=== PATIENT | male | born 1985 | race Caucasian/White ===

== ENCOUNTER 2024-09-28 17:37 | Emergency (ER) | payer MEDICARE, SELFPAY ==
[2024-09-28 17:47] VITALS: BP 141/99; PULSE 98; RESP 20; TEMP 36.8; O2SAT 96; BMI 30.5
--- NOTE | 2024-09-28 17:48 | XR_ITS ---
PROCEDURE INFORMATION: Exam: XR Left Elbow Exam date and time: 09/28/2024 5:54 PM Age: 39 years old Clinical indication: Injury or trauma; Other: Board v elbow; Blunt trauma (contusions or hematomas); Left; Additional info: L elbow pain TECHNIQUE: Imaging protocol: Radiologic exam of the left elbow. Views: 3 or more views. COMPARISON: No relevant prior studies available. FINDINGS: Bones/joints: No evidence of acute osseous abnormality. Soft tissues: Linear thin radiopaque foreign body measuring 7.5 mm at the anterolateral aspect of the antecubital fossa soft tissues. IMPRESSION: 1. Linear thin radiopaque foreign body measuring 7.5 mm at the anterolateral aspect of the antecubital fossa soft tissues. 2. No evidence of acute osseous abnormality.
--- NOTE | 2024-09-28 17:48 | HMH.EDGENADL ---
Discharge Plan Disposition Patient Disposition: Home, Self-Care Referrals Follow up/Referrals: Calvin Payton DO [Staff Physician] - See instructions Provider,Referral, MD [Primary Care Provider] - See instructions Activity Restrictions/Add. Instructions Additional Instructions/Restrictions: Take Tylenol and ibuprofen as needed for pain. Follow-up with our orthopedic surgeons office, Dr. Payton, information provided above, for further evaluation if your symptoms persist. Please return the emerged apartment with any new, concerning, worsening symptoms. Clinical Impressions Clinical Impression: Elbow pain, left Print Language Print Language: Frisian Discharge ED Provider: Ted Avalos General Adult HPI General Chief complaint: Extremity Injury, Upper Stated complaint: left elbow pain,injury 4 months ago Time Seen by Provider: 09/28/24 17:39 Mode of Arrival: Ambulatory Source of Information: Patient Limitations: No Limitations History of Present Illness HPI narrative: This is a 39-year-old male with a past medical history of IV drug use and infective endocarditis 8 to 9 years ago who presents with left elbow pain for the last 4 months. States that he was working in a barn and injured his left elbow 4 months ago. Denies any other recent injuries. States that he has a numb sensation around his elbow at the site of injury, however nothing distally. Has had limited range of motion of his left elbow since that time. Denies any recent IV drug use. No other injuries or complaints Related Data Allergies Allergy/AdvReac Type Severity Reaction Status Date / Time promethazine (From PHENERGAN) Allergy Unknown Unverified 05/20/17 14:44 [facility] Disclaimer: The information contained in this section may have been updated after the patient was seen, as this information can be updated by other users. Social History Smoking Status: Current every day smoker alcohol intake: former current occupational status: employed Travel in the last 8 weeks?: None ROS Obtained: Yes All systems reviewed & no additional complaints except as documented Physical Exam General General appearance: alert and in no apparent distress Head Head exam: atraumatic Eye Eye exam: Present normal appearance, PERRL and EOMI Neck Neck exam: Present normal inspection and full ROM Chest Chest inspection: Present symmetric chest wall rise Respiratory Respiratory exam: Present normal lung sounds bilaterally; Absent respiratory distress Cardiovascular Cardiovascular exam: Present regular rate and normal rhythm Abdominal Exam Abdominal exam: Present soft; Absent distention Extremities Exam Extremities exam: Present other (RUE: Tenderness of the left lateral elbow. No deformity. Range of motion intact. No swelling. Neurovascularly intact in median/ulnar/radial nerve distributions) Neurological Exam Neurological exam: Present alert and oriented X3 Psychiatric Psychiatric exam: Present normal affect and normal mood Skin Skin exam: Present warm and dry Medical Decision Making Medical Records Medical records reviewed: Yes I reviewed the patient's medical records. Screening: Per USPSTF and CDC recommendations, given the prevalence of disease in our region, it is our hospital?s policy to screen for HIV and viral Hepatitis for all patients aged 18 and over and those with ongoing risk factors. Zach Inquiry Pt receiving controlled substance: No Vital Signs: 09/28/24 17:47 Temperature 98.2 F Temperature Source Oral Pulse Rate [Left Radial] 98 H Respiratory Rate 20 Blood Pressure [Right Arm] 141/99 H Blood Pressure Mean [Right Arm] 113 02 Sat by Pulse Oximetry 96 Oxygen Delivery Method Room Air Orders (Tests/Meds): ORDERS Category Date Time Status Elbow XR left mininum 3 views [XR elbow LT min 3V] Stat Exams 09/28/24 17:48 Taken Medical Decision Narrative: In summary, this 39-year-old male with a past medical history of IV drug use and infective endocarditis 8 to 9 years ago presents to the emergency department today with traumatic left elbow pain for the last 4 months. On initial evaluation patient is afebrile, he medically stable, nontoxic-appearing. Differential diagnosis includes but is not limited to fracture, dislocation, soft tissue injury, neuropathic pain, arthritis, septic arthritis. Low clinical suspicion for inflammatory or septic arthritis given intact range of motion to the left elbow and no obvious swelling. Has had persistent symptoms since trauma 4 months ago.. Based on these concerns, I ordered x-ray of the left elbow. XR personally interpreted demonstrates no acute osseous pathology. Patient appropriate for discharge with outpatient follow-up. Provided with orthopedic surgery follow-up for further evaluation if symptoms persist. Ultimately discharged in stable condition. Critical Care Critical Care Time Critical Care Time: No
[2024-09-28 18:07] VITALS: BP 148/79; PULSE 80; RESP 20; TEMP 36.8; O2SAT 96
== END 2024-09-28 18:09 | disposition home or self-care (01) ==
PROVIDERS: Emergency Provider Student in an Organized Health Care Education/Training Program
DX: M25.522 Pain in left elbow (principal)
CPT/HCPCS: 73080; 99283

== ENCOUNTER 2025-01-20 17:30 | Emergency (ER) | payer MEDICARE, SELFPAY ==
--- NOTE | 2025-01-20 17:34 | HMH.EDGENADL ---
Discharge Plan Disposition Patient Disposition: Home, Self-Care Condition: Good Prescriptions Prescriptions: New levofloxacin 750 mg tablet 750 mg PO DAILY 4 Days Qty: 4 0RF No Action atorvastatin [Lipitor] 40 mg tablet 40 mg PO DAILY Referrals Follow up/Referrals: Provider,Referral, [Primary Care Provider, Medical] - See instructions Activity Restrictions/Add. Instructions Additional Instructions/Restrictions: Take the antibiotics as prescribed for 4 additional days. Clean your wound with soap and water twice daily. Return for any signs of infection including spreading redness, drainage, severe pain. You can take Tylenol Motrin as needed. Clinical Impressions Clinical Impression: Laceration Instructions Patient Instructions: DI for Skin Abscess Print Language Print Language: Malawian Discharge ED Provider: Nicci Bentley General Adult HPI General Chief complaint: Skin/Abscess/Foreign Body Stated complaint: AO 01/20/25 1100 Stepped on nail Time Seen by Provider: 01/20/25 17:34 History of Present Illness HPI narrative: Patient is an otherwise healthy 39-year-old male with history of coronary artery disease but no history of diabetes who presents to the emergency department with right foot pain. Patient states that he was at work when he stepped on a nail that went through his shoe. Patient states that he stepped on a piece of wood that had a nail and it and then brought his foot back up, the nail did not stay in his shoe or in his foot. Patient states that he was walking on his foot all day but had persistent pain which is what brought him here to the emergency department. Patient states he is unsure when his last tetanus shot was. Related Data Home Medications ?Medication ?Instructions ?Recorded ?Confirmed atorvastatin 40 mg tablet (Lipitor) 40 mg PO DAILY 12/06/24 12/06/24 Previous Rx's ?Medication ?Instructions ?Recorded levofloxacin 750 mg tablet 750 mg PO DAILY 4 days #4 tabs 01/20/25 Allergies Allergy/AdvReac Type Severity Reaction Status Date / Time promethazine (From PHENERGAN) Allergy Unknown Verified 12/06/24 09:00 [facility] Disclaimer: The information contained in this section may have been updated after the patient was seen, as this information can be updated by other users. Social History (Updated 12/06/24 @ 09:02 by Dolly Baron [facility]) Smoking Status: Current every day smoker alcohol intake: former substance use type: former substance user current occupational status: employed Travel in the last 8 weeks?: None Have you lived/traveled outside US in past 30 days?: No Contact w/someone who lives/traveled outside US past 30 days?: No Exposure to someone with infectious disease in past 14 days?: No Do you have a fever (greater than 100.4 F or 38 C)?: No Have you tested positive for COVID-19?: No Exposed to someone with COVID-19 in past 14 days?: No Do you have a sore throat?: No Do you have a cough?: No Do you have any weakness?: No Do you have any diarrhea?: No Are you experiencing any unusual bleeding?: No Do you have any muscle aches/pain?: No Do you have any abdominal pain?: No Are you experiencing loss of taste or smell?: No ROS Obtained: Yes All systems reviewed & no additional complaints except as documented and Yes Systems reviewed as appropriate & no additional complaints except as documented Physical Exam General General appearance: alert and in no apparent distress Head Head exam: atraumatic, normocephalic and normal inspection Eye Eye exam: Present normal appearance, PERRL and EOMI; Absent scleral icterus ENT ENT exam: Present normal exam and normal external ear exam Neck Neck exam: Present normal inspection and full ROM Chest Chest inspection: Present normal inspection and symmetric chest wall rise Respiratory Respiratory exam: Present normal lung sounds bilaterally; Absent respiratory distress or wheezes Cardiovascular Cardiovascular exam: Present regular rate, normal rhythm and normal heart sounds Abdominal Exam Abdominal exam: Present soft and distention; Absent tenderness, guarding or rebound Extremities Exam Extremities exam: Present normal inspection, full ROM and other (Right foot with some tenderness of the right first digit, small puncture wound, no erythema) Back Exam Back exam: Present normal inspection and full ROM Neurological Exam Neurological exam: Present alert and oriented X3 Psychiatric Psychiatric exam: Present normal affect and normal mood Skin Skin exam: Present warm and dry Medical Decision Making Medical Records Medical records reviewed: Yes I reviewed the patient's medical records. Screening: Per USPSTF and CDC recommendations, given the prevalence of disease in our region, it is our hospital?s policy to screen for HIV and viral Hepatitis for all patients aged 18 and over and those with ongoing risk factors. Zach Inquiry Pt receiving controlled substance: No Vital Signs: 01/20/25 17:35 01/20/25 17:37 01/20/25 19:10 Temperature 98.6 F Temperature Source Oral Pulse Rate 89 57 L Pulse Rate [Right Brachial] 91 H Respiratory Rate 18 16 Blood Pressure 131/87 146/84 H Blood Pressure [Right Arm] 131/57 L Blood Pressure Mean 103 Blood Pressure Mean [Right Arm] 81 02 Sat by Pulse Oximetry 98 99 100 Oxygen Delivery Method Room Air Room Air 01/20/25 19:27 Temperature 98.4 F Temperature Source Pulse Rate 84 Pulse Rate [Right Brachial] Respiratory Rate 16 Blood Pressure 146/84 H Blood Pressure [Right Arm] Blood Pressure Mean Blood Pressure Mean [Right Arm] 02 Sat by Pulse Oximetry Oxygen Delivery Method Room Air Lab Data Lab results reviewed: Yes I reviewed the patient's lab results. Orders (Tests/Meds): ED MEDICATIONS Discontinued Medications Generic Name Dose Route Start Last Admin Trade Name Freq PRN Reason Stop Dose Admin Acetaminophen 1,000 mg 01/20/25 17:48 01/20/25 18:01 Acetaminophen 500mg Tab PO 01/20/25 17:49 1,000 mg ONCE ONE Administration Ibuprofen 800 mg 01/20/25 17:49 01/20/25 18:01 Ibuprofen 800 Mg Tablet PO 01/20/25 17:50 800 mg ONCE ONE Administration Levofloxacin 750 mg 01/20/25 19:08 01/20/25 19:26 Levofloxacin 750 Mg Tablet PO 01/20/25 19:09 750 mg ONCE ONE Administration Tetanus/Reduced Diphtheria/Acell Pertussis 0.5 ml 01/20/25 17:47 01/20/25 17:58 Tet/Diphth/Pert-Adult 0.5ml Syringe IM 01/20/25 17:48 0.5 ml .ONCE ONE Administration ORDERS Category Date Time Status Foot XR right minimum 3 views [XR foot RT min 3V] Stat Exams 01/20/25 17:47 Completed Medical Decision Narrative: Patient is an otherwise healthy 39-year-old male who presented to the emergency department after stepping on a nail earlier today. On arrival, patient was hemodynamically stable with unremarkable vital signs. Differential includes but not limited to: Laceration, fracture, exposure to foreign body, dislocation, cellulitis, amongst others. X-ray of the right foot was obtained which was reviewed and interpreted by myself and showed no acute bony pathology. Given that patient did step on a nail, given that the nail went through patient's shoe, patient was given a dose of Levaquin in the emergency department and sent home with 4 days of additional antibiotic appropriate coverage. Patient is unsure when his last tetanus shot was. Patient was discharged home in stable condition wound care instructions were discussed. Patient's tetanus shot was not given in the emergency department however I did call the patient and told him that he needed to go to a healthcare facility in the next 24 hours to receive a tetanus shot given that he had stepped on a nail. Patient understood. Critical Care Critical Care Time Critical Care Time: No
[2025-01-20 17:35] VITALS: BP 131/87; PULSE 89; O2SAT 98
[2025-01-20 17:37] VITALS: BP 131/57; PULSE 91; RESP 18; TEMP 37; O2SAT 99; BMI 25.0
--- NOTE | 2025-01-20 17:47 | XR_ITS ---
PROCEDURE INFORMATION: Exam: XR Right Foot Exam date and time: 01/20/2025 6:04 PM Age: 39 years old Clinical indication: Injury or trauma; Other: Stepped on nail; Puncture; Foot; Right; With foreign body; Additional info: Stepped on nail, pain first toe TECHNIQUE: Imaging protocol: Radiologic exam of the right foot. Views: 3 or more views. COMPARISON: No relevant prior studies available. FINDINGS: Bones/joints: Normal. Soft tissues: Normal. IMPRESSION: No acute findings.
[2025-01-20] MEDS: TET/DIPHTH/PERT-ADULT 0.5ML SYRINGE 0.5 ML IM (17:58)
[2025-01-20] MEDS: IBUPROFEN 800 MG TABLET PO (18:01)
[2025-01-20] MEDS: ACETAMINOPHEN 500MG TAB 1000 MG PO (18:01)
--- NOTE | 2025-01-20 19:09 | PC.NURSE ---
Resumed care from DUNG Sierra
[2025-01-20 19:10] VITALS: BP 146/84; PULSE 57; RESP 16; O2SAT 100
[2025-01-20 19:27] VITALS: BP 146/84; PULSE 84; RESP 16; TEMP 36.9; O2SAT 100
== END 2025-01-20 19:28 | disposition home or self-care (01) ==
PROVIDERS: Emergency Provider Student in an Organized Health Care Education/Training Program
DX: S91.331A Puncture wound without foreign body, right foot, initial encounter (principal); W45.0XXA Nail entering through skin, initial encounter
CPT/HCPCS: 73630; 90471; 90715; 99283

== ENCOUNTER 2025-03-16 19:50 | Emergency (ER) | payer SELFPAY ==
--- OUTSIDE RECORDS SUMMARY | 2017-10-28 04:43 | XMS_ITS | Continuity of Care Document ---
Author Organization [facility] Address [address] [place] [address] Phone Care Team Providers Care Waste Reduction Coordinator Name Role Phone Harris Liss MORRISON Unavailable Unavailable Allergies, Adverse Reactions, Alerts Substance Reaction Status Criticality PROMETHAZINE HCL restless Active No Informat ion Medications Medication Instructions Dosage Effective Dates (start - stop) Status Comments No Drug Therapy Prescribed Procedures Procedure Date Office/outpatient visit,[facility] 2017 BODY MASS INDEX DOCD Advance Directives Directive Yes / No Effective Date File Name No Information Encounters Encounter Description Practice Location Reason(s) For Visit Diagnoses Date Provider Providers Copied on Encounter [facility], [address] [place], [id number] tel:[phone] Formerly [facility] No Information 8 Harris Leija. [address] [facility] [address] [place], [address]. tel:[phone] [facility] [address] [place], [place], [id number] tel:[phone] Formerly [facility] Nursing Comments (chief complaint) Establish Care (chief complaint) Body mass index (BMI) 24.0-24.9, adultEncounter to establish careHistory of endocarditis in adulthoodHistory of intravenous drug use in remissionHeart murmur on physical examinationEdema extremities [address] [place], [address]. tel:[phone] Family History Family Member Type Diagnosis Age At Onset Father Problem (finding) prostate cancer Father Problem (finding) hypertension Mother Problem (finding) hypertension Payers Payer name Insurance type Covered libertarian ID Authoriza ticlarita(s) No Information Social History Type Description Quantity Date Captured Comments Sex Male Smoking Status No Information Plan Of Treatment Date Type Action Status Goal Tobacco cessation counseling completed Goal Dietary management education , guidance, and counseling completed Referral Ordered: Referrals: Cardiology. Evaluate and treat Appointment date/timeframe: 11/17/2017 ordered Referral Ordered: 2D Echo Doppler, transthoracic, Complete, heart, W/Color Flow Appointment date/timeframe: 10/29/2017 ordered History Of Present Illness Encounter Date Complaint History Of Prese nt Illness Nursing [facility] A[facility] Establish Care He states the sy mptoms are chronic and are poorly controlled. In office today to establish care. Last PCP: none Past medical problems: endocarditis-multiple valve involvement. States he was needing valve replacement. Surgical: noneSmoke: yes, 1ppd Alcohol: beer, 7 weekly Drugs: DeniesMedication: none at this timeReason for establishing care now: establish care.Has history of IV drug use including ice, heroin, pcp and cocaine. States he has been clean for 2 years. Functional Status Date Functional Assessmen t No Information Medications Administered Medication Instructions Dosage Effective Dates (start - stop) Status Comments No Drug Therapy Prescribed Instructions Date Instruction Additional Infor mation Giving encouragement to exercise Related to Body mass index (BMI) 24.0-24.9, adult Dietary management e ducation, guidance, and counseling Related to Body mass index (BMI) 24.0-24.9, adult Assessments Type Assessment Date No Information Patient Care Teams Name Effective Dates (start - stop) Status Members No Information
[2025-03-16 20:06] VITALS: BP 148/91; PULSE 90; RESP 18; TEMP 36.9; O2SAT 99; BMI 27.9
--- NOTE | 2025-03-16 20:12 | ECG_ITS ---
APPROVED REPORT Exam: Resting ECG HR:83 bpm ECG Measurements Heart Rate [address] 122 P 71 QRSd 80 QRS 90 QT 330 T 37 QTc 369 Conclusion Normal sinus rhythm Normal axis Normal intervals No STEMI Electronically signed by : Anoop Aparicio, 03/17/2025 03:08:40
[2025-03-16 21:00] VITALS: BP 127/79; PULSE 82; RESP 20; O2SAT 99
--- NOTE | 2025-03-16 21:00 | XR_ITS ---
PROCEDURE INFORMATION: Exam: XR Chest Exam date and time: 03/16/2025 8:58 PM Age: 40 years old Clinical indication: Other: Pain between shoulder blades; Additional info: Chest pain TECHNIQUE: Imaging protocol: Radiologic exam of the chest. Views: 2 views. COMPARISON: CR XR CHEST 2V 03/16/2025 8:58 PM FINDINGS: Tubes, catheters and devices: Leads overlying chest. Lungs: No consolidation. Pleural spaces: No significant pleural effusion. No pneumothorax. Heart/Mediastinum: No cardiomegaly. Bones/joints: No displaced fracture. Soft tissues: Unremarkable. IMPRESSION: No definite acute cardiopulmonary disease.
[2025-03-16 21:05] LABS: Hematocrit 41.0 % (42.0-52.0); Hemoglobin 14.2 g/dL (14.1-18.0); Immature Granulocytes % 0.1 %; Mean Corpuscular HGB Conc 34.6 g/dL (31.8-35.4); Mean Corpuscular Hemoglobin 31.3 pg (27.0-31.2); Mean Corpuscular Volume 90.3 fl (80-94); Nucleated Red Blood Cells % 0 %; Platelet Count 188 K/mm3 (142-424); Red Blood Count 4.54 M/mm3 (4.60-6.20); Red Cell Distribution Width-SD 39.6 fL; White Blood Count 8.2 K/mm3 (4.8-10.8)
[2025-03-16] MEDS: ASPIRIN 325MG TABLET 325 MG PO (21:06)
--- NOTE | 2025-03-16 21:07 | CT_ITS ---
PROCEDURE INFORMATION: Exam: CTA Chest With Contrast Exam date and time: 03/16/2025 9:35 PM Age: 40 years old Clinical indication: Pain; Chest pressure; Additional info: Chest pain TECHNIQUE: Imaging protocol: Computed tomographic angiography of the chest with contrast. Exam focused on the arteries. 3D rendering (Not supervised by radiologist): MIP and/or 3D reconstructed images were created by the technologist. Radiation optimization: All CT scans at this facility use at least one of these dose optimization techniques: automated exposure control; mA and/or kV adjustment per patient size (includes targeted exams where dose is matched to clinical indication); or iterative reconstruction. Contrast material: ISOVUE; Contrast volume: 70 ml; Contrast route: INTRAVENOUS (IV); COMPARISON: CR XR CHEST 2V 03/16/2025 8:58 PM FINDINGS: Pulmonary arteries: No pulmonary embolism. Aorta: Unremarkable. No aneurysm. Lungs: No consolidation. Few calcified granulomas. Few noncalcified nodules and/or focal scarring, up to 0.4 cm. Pleural spaces: No significant pleural effusion. No pneumothorax. Heart: No cardiomegaly. No pericardial effusion. Lymph nodes: No pathologically enlarged lymph nodes. Bones/joints: No acute fracture. Soft tissues: Minimal gynecomastia. IMPRESSION: 1. No CT evidence of pulmonary embolism. 2. Pulmonary nodules. For patients at low risk (minimal or absent history of smoking and of other known risk factors), no routine follow-up is indicated. For patients at high risk (history of smoking or of other known risk factors), consider optional CT at 12 months. (amador Aguilar al., Fleischner Society, 2017)
--- NOTE | 2025-03-16 21:07 | CT_ITS ---
PROCEDURE INFORMATION: Exam: CT Thoracic Spine Without Contrast Exam date and time: 03/16/2025 9:32 PM Age: 40 years old Clinical indication: Pain in thoracic spine; Additional info: Upper t-spine tenderness TECHNIQUE: Imaging protocol: Computed tomography of the thoracic spine without contrast. Radiation optimization: All CT scans at this facility use at least one of these dose optimization techniques: automated exposure control; mA and/or kV adjustment per patient size (includes targeted exams where dose is matched to clinical indication); or iterative reconstruction. COMPARISON: No relevant prior studies available. FINDINGS: Vertebrae: No acute fracture. Normal alignment. Early degenerative changes of thoracic spine. Soft tissues: Unremarkable. Other findings: See chest CT report for additional details. IMPRESSION: 1. No fracture. If back pain persists, consider MRI for further evaluation. 2. See chest CT report for additional details.
[2025-03-16 21:20] LABS: Alanine Aminotransferase 19 U/L (12-78); Albumin Level 4.1 g/dl (3.5-5.0); Albumin/Globulin Ratio 1.6 (1.1-1.8); Alkaline Phosphatase 71 U/L (38-126); Anion Gap 11.9 mEq/L (5-15); Aspartate Amino Transferase 47 U/L (17-59); Bilirubin,Total 1.2 mg/dl (0.2-1.3); Blood Urea Nitrogen 24 mg/dl (9-20); Calcium 9.0 mg/dl (8.4-10.2); Carbon Dioxide 24 mmol/L (22.0-30.0); Chloride 105 mmol/L (98-107); Creatinine Clearance Estimated 77 mL/min (50-200); Creatinine,Serum 1.30 mg/dl (0.66-1.25); Estimated Glomerular Filt Rate 61 ml/min (>60); GFR (African American) 73 ML/MIN (>60); Globulin 2.5 g/dL (1.3-3.2); Glucose 102 mg/dl (74-100); Lipase 111 U/L (23-300); Potassium 4.9 mmoL/L (3.5-5.1); Sodium 136 mmol/L (136-145); Total Protein,Serum 6.6 g/dl (6.3-8.2)
[2025-03-16 21:25] LABS: D-Dimer 0.39 ug/mL (0.0-0.5)
[2025-03-16 21:32] LABS: Troponin I 0.03 ng/ml (0.00-0.034)
[2025-03-16] MEDS: 0.9 % SODIUM CHLORIDE 50 ML VIAL IV (21:34)
[2025-03-16] MEDS: SODIUM CHLORIDE 0.9% 10ML SYR (RAD ONLY) 10 ML IV (21:34)
[2025-03-16] MEDS: IOPAMIDOL-370 (76%);100ML BOTTLE 70 ML IV (21:34)
[2025-03-16] MEDS: LACTATED RINGERS 1000ML 1,000 ML 999 ML IV (21:53)
[2025-03-16] MEDS: METHOCARBAMOL 500MG TABLET 1500 MG PO (21:53)
--- NOTE | 2025-03-16 22:19 | ED_ITS ---
Discharge Plan Disposition Patient Disposition: Home, Self-Care Condition: Good Prescriptions Prescriptions: New methocarbamol 750 mg tablet 1,500 mg PO Q8H Qty: 90 0RF No Action atorvastatin [Lipitor] 40 mg tablet 40 mg PO DAILY levofloxacin 750 mg tablet 750 mg PO DAILY 4 Days Qty: 4 0RF Referrals Follow up/Referrals: Provider,Referral, [Primary Care Provider, Medical] - See instructions Activity Restrictions/Add. Instructions Additional Instructions/Restrictions: I want you to follow up in the Cardiology Clinic at 9 AM in the morning. That is 8 hours from now. You can tell them to read my note from the emergency department. For your back pain, you can take Ibuprofen and Tylenol. I have also prescribed Robaxin for muscle relaxation. If you have any new or worsening symptoms please return to the ER for further evaluation. Clinical Impressions Clinical Impression: Chest pain Qualifiers: Chest pain type: unspecified Qualified Code(s): R07.9 - Chest pain, unspecified Back pain Qualifiers: Back pain location: thoracic back pain Chronicity: acute Back pain laterality: midline Qualified Code(s): M54.6 - Pain in thoracic spine Print Language Print Language: Monegasque Discharge ED Provider: Anoop Aparicio Adult HPI General Chief complaint: Chest Pain Stated complaint: chest tightness,back pain,weakness,dizzy Time Seen by Provider: 03/16/25 20:22 Mode of Arrival: Ambulatory Source of Information: Patient Description of Symptoms (Recalled from ER Triage Doc. by RN): Pt presents with c/o chest tightness that started this afternoon. Pt states the pain radiates to his back, and to his left arm. Pt reports he has been feeling weak, dizzy, and short of breath. Pt reports drinking a fifth of [place] every day, last drink was yesterday evening. 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 The patient tells me that he recently got out of [employer]. 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 He states that over the last 24 hours he has developed pain in his back that is in the midline of the thoracic spine. Since the onset of the symptoms he has also developed pain in the chest which she characterizes as tightness. He states this pain is nonradiating in nature. He has not had any sensory or motor deficits in the upper or lower extremities. He has not had any associated nausea, vomiting, or diaphoresis. Related Data Home Medications ?Medication ?Instructions ?Recorded ?Confirmed atorvastatin 40 mg tablet (Lipitor) 40 mg PO DAILY 12/2412/06/24 Previous Rx's ?Medication ?Instructions ?Recorded levofloxacin 750 mg tablet 750 mg PO DAILY 4 days #4 t abs 01/20/25 methocarbamol 750 mg tablet 1,500 mg (2 x 750 mg) PO Q 8H #90 03/17/25 tabs Allergies Allergy/AdvReac Type Severity Reaction Status Date / Time promethazine (From [facility]) Allergy Unknown Verified 12/06/24 09:00 [facility] Disclaimer: The information contained in this section may have been updated after the patient was seen, as this information can be updated by other users. Social History (Updated 12/06/24 @ 09:02 by Dolly Baron [facility]) Smoking Status: Current every day smoker alcohol intake: former substance use type: former substance user current occupational status: employed Travel in the last 8 weeks?: None Have you lived/traveled outside [place] in past 30 days?: No Contact w/someone who lives/traveled outside US past 30 days?: No Exposure to someone with infectious disease in past 14 days?: No Do you have a fever (greater than 100.4 F or 38 C)?: No Have you tested positive for COVID-19?: No Exposed to someone with COVID-19 in past 14 days?: No Do you have a sore throat?: No Do you have a cough?: No Do you have any weakness?: No Do you have any diarrhea?: No Are you experiencing any unusual bleeding?: No Do you have any muscle aches/pain?: No Do you have any abdominal pain?: No Are you experiencing loss of taste or smell?: No ROS Obtained: Yes Systems reviewed as appropriate & no additional complaints except as documented Physical Exam General General appearance: other (See MDM) Respiratory Respiratory exam: Present other (See MDM) Cardiovascular Cardiovascular exam: Present other (See MDM) Neurological Exam Neurological exam: Present other (See MDM) Medical Decision Making Medical Records Medical records reviewed: Yes I reviewed the patient's medical records. Screening: Per USPSTF and CDC recommendations, given the prevalence of disease in our region, it is our hospital?s policy to screen for HIV and viral Hepatitis for all patients aged 18 and over and those with ongoing risk factors. Zach Inquiry Pt receiving controlled substance: No Zach was queried for this patient: No Vital Signs: 03/16/25 20:06 03/16/25 21:00 03/17/25 01:37 Temperature 98.4 F 98.1 F Temperature Source Temporal Artery Scan Oral Pulse Rate 82 80 Pulse Rate [Right] 90 Respiratory Rate 18 20 14 Blood Pressure 127/79 128/78 Blood Pressure [Right Arm] 148/91 H Blood Pressure Mean 89 Blood Pressure Mean [Right Arm] 110 Blood Pressure Source Automatic Cuff Blood Pressure Source [Right Arm] Automatic Cuff Blood Pressure Position Sitting Blood Pressure Position [Right Arm] Sitting 02 Sat by Pulse Oximetry 99 99 Oxygen Delivery Method Room Air Room Air Lab Data Lab Results 03/16/25 20:45: WBC 8.2, RBC 4.54 L, Hgb 14.2, Hct 41.0 L, MCV 90.3, MCH 31.3 H, MCHC 34.6, RDW 12.1, Plt Count 188, MPV 12.1 H, Neut % (Auto) 51.8, Lymph % (Auto) 40.2, [place] % (Auto) 5.5, Eos % (Auto) 1.5, Baso % (Auto) 0.9, Neut # (Auto) 4.2, Lymph # (Auto) 3.3, [place] # (Auto) 0.5, Eos # (Auto) 0.1, Baso # (Auto) 0.1, D-Dimer 0.39, Sodium 136, Potassium 4.9, Chloride 105, Carbon Dioxide 24, Anion Gap 11.9, BUN 24 H, Creatinine 1.30 H, Estimated Creat Clear 77, Estimated GFR 61, Est GFR ( Amer) 73, Glucose 102 H, Calcium 9.0, Total Bilirubin 1.2, AST 47, ALT 19, Alkaline Phosphatase 71, Troponin I 0.03, Total Protein 6.6, Albumin 4.1, Globulin 2.5, Albumin/Globulin Ratio 1.6, Lipase 111 03/16/25 23:25: Troponin I 0.02 03/16/25 20:45 03/16/25 20:45 Orders (Tests/Meds): ED MEDICATIONS Discontinued Medications Generic Name Dose Route Start Last Admin Trade Name Bandar PRN Reason Stop Dose Admin Aspirin 325 mg 03/16/25 21:01 03/16/25 21:06 Aspirin 325mg Tablet PO 03/16/25 21:02 325 mg ONCE ONE Administration Lactated Ringer's 1,000 mls @ 999 mls/hr 03/16/25 21:34 03/16/25 23:37 Lactated Ringer's 1000 Ml Bag IV 03/16/25 22:34 Infused .Q1H1M ONE Infusion Iopamidol 70 ml 03/16/25 21:33 03/16/25 21:34 Iopamidol-370 (76%);100ml Bottle IV 03/16/25 21:34 70 ml ONCE ONE Administration Methocarbamol 1,500 mg 03/16/25 21:34 03/16/25 21:53 Methocarbamol 500mg Tablet PO 03/16/25 21:35 1,500 mg ONCE ONE Administration Sodium Chloride 50 ml 03/16/25 21:33 03/16/25 21:34 0.9 % Sodium Chloride 50 Ml Vial IV 03/16/25 21:34 50 ml ONCE ONE Administration Sodium Chloride 10 ml 03/16/25 21:33 03/16/25 21:34 Sodium Chloride 0.9% 10ml Syr (Rad Only) IV 03/16/25 21:34 10 ml ONCE ONE Administration ORDERS Category Date Time Status CT angio chest PE protocol Stat Cat Scan 03/16/25 21:[address] thoracic spine wo con Stat Cat Scan 03/16/25 21:07 Completed Consult Pesticide Control Inspector [CONS] Routine Cons 03/16/25 20:13 Active CXR 2 view (NOT portable) [XR chest 2V] Stat Exams 03/16/25 21:00 Completed CBC w/Auto Diff [Complete Blood Count Auto Diff] Stat Lab 03/16/25 20:45 Completed CMP [Comprehensive Metabolic Panel] Stat Lab 03/16/25 20:45 Completed D-Dimer Stat Lab 03/16/25 20:45 Completed Lipase Stat Lab 03/16/25 20:45 Completed Troponin I Q3H Lab 03/17/25 00:00 Completed Troponin I Stat Lab 03/16/25 20:45 Completed Medical Decision Narrative: In summary this is a 40-year-old male patient who is presenting to the emergency department today for evaluation of thoracic back pain as well as chest tightness that is onset over the last 24 hours in the setting of vigorous hard labor at his new job after getting out of [employer]. His comorbidities include a remote history of IV drug use over 10 years ago with resultant endocarditis as well as hyperlipidemia. On initial evaluation of the patient they were resting comfortably in no acute distress and nontoxic in appearance. They are hemodynamically stable, saturating well room air, and are neurologically intact. On physical examination the patient is appropriately alert and oriented with a GCS of 15. His heart and lungs are clear to auscultation bilaterally. He has no abdominal tenderness to palpation. He does have midline thoracic tenderness in the region of T3. There is also associated paraspinal thoracic muscular hypertonicity present. He has 5 out of 5 strength in his upper and lower extremities. He has normal sensation in all terminal nerve distributions of the bilateral upper and lower extremities. Differential diagnosis includes ACS/HI, pulmonary embolism, thoracic spine fracture, pneumonia, pneumothorax, rib fracture, among others. Given that this patient denies drug use within the last 10 years I do not feel that he is currently at an elevated risk for more ominous pathology such as infective endocarditis, spinal osteomyelitis, or epidural abscess and I feel that this is increasingly unlikely in the setting of normal vital signs in which he is afebrile, normotensive, nontachycardic, and nontachypneic. Workup was initiated with hematologic labs as well as an EKG. We have also obtained a CT PE study as well as a CT of the thoracic spine. Initial interventions included 325 mg of aspirin. EKG was personally interpreted by me and demonstrates normal sinus rhythm at a rate of 83 bpm, right axis, no RI prolongation, narrow QRS, no QTc prolongation. No ST elevation. No overt signs of ischemia or arrhythmia. Labs were personally interpreted by me and demonstrate no leukocytosis, no Transfusable anemia, no significant electrolyte derangements and mild elevation of his creatinine from prior, although her last creatinine on file is from 2017. The patient's initial troponin was 0.03. We will pend a second troponin. Lipase is negative. CT of the thoracic spine without IV contrast demonstrates no acute fracture or or malalignment on my interpretation. Official radiology read is in agreement. CT PE study demonstrates no evidence of pulmonary embolism. There are some pulmonary nodules present Given the mild elevation of his creatinine we treated the patient in the emergency department with 1 L of lactated Ringer's, we have also treated the patient with 1500 mg of Robaxin for his back pain On repeat assessment the patient he is sleeping comfortably in the bed and is in no acute distress. His pain is controlled. The patient's second troponin did come back lower than the first troponin at 0.02. Given that he did have a mild elevation in his troponin I do feel that he should be evaluated by cardiology at some point. We have arranged for the patient have next a follow-up in the cardiology clinic tomorrow morning at 9 AM. Patient assures me that he is able to make this appointment in the morning. I have given him return precautions in the event that he experiences new or worsening chest pain. At this time all questions have been answered and all parties are agreeable with the decision to discharge home Critical Care Critical Care Time Critical Care Time: No
[2025-03-17 00:41] LABS: Troponin I 0.02 ng/ml (0.00-0.034)
[2025-03-17 01:37] VITALS: BP 128/78; PULSE 80; RESP 14; TEMP 36.7; O2SAT 97
--- NOTE | 2025-03-17 14:18 | PEERSUPPORT ---
Peer Support Note Patient Information Patient Information: DOS: 03/17/2025 Ps attempted to make contact. Pts number in chart is a non-working number or has been changed. Please do update contact number in chart if patient presents to ED or outpatient clinic.
== END 2025-03-17 01:39 | disposition home or self-care (01) ==
PROVIDERS: Emergency Provider Student in an Organized Health Care Education/Training Program
DX: R07.9 Chest pain, unspecified (principal); M54.6 Pain in thoracic spine; F17.210 Nicotine dependence, cigarettes, uncomplicated; X50.0XXA Overexertion from strenuous movement or load, initial encounter; X50.3XXA Overexertion from repetitive movements, initial encounter
CPT/HCPCS: 71046; 71275; 72128; 80053; 83690; 84484; 85025; 85378; 93005; 96360; 96361; 99285; J7120; Q9967